=== PATIENT | male | born 1955 | race Caucasian/White ===

== ENCOUNTER → 2018-05-01 | Outpatient (CLI) | payer OTHER ==
[~2018-05-01] MED LIST: ASPI-319 PO; ATOR-54 PO; CALC8.5C PO; CMD/25 PO; HYDR12.55 PO; LOSA1TAB PO; PEDI1CHW95 PO; POTA550T4 PO; TPRSR/100 PO; WARF5TAB90 PO
[2018-05-01 13:55] LABS: BLOOD UREA NITROGEN 18 mg/dl (7-18); CREATININE 1.36 mg/dl (0.60-1.40); GLUCOSE 105 mg/dl (70-99)
[2018-05-01 13:56] LABS: CALCIUM 8.6 mg/dl (8.5-10.1); CARBON DIOXIDE 28 mmol/L (21-32); POTASSIUM 3.2 mmol/L (3.5-5.1); SODIUM 140 mmol/L (136-145)
== END | disposition home or self-care (01) ==
LOC: C.LABBC 09:18
PROVIDERS: ATTEND Internal Medicine Interventional Cardiology
DX: E87.6 Hypokalemia (principal)

== ENCOUNTER → 2018-06-01 | Outpatient (CLI) | payer OTHER | END | disposition home or self-care (01) | LOC: C.LABBC 07:34 | PROVIDERS: ATTEND Internal Medicine Interventional Cardiology | DX: E87.6 Hypokalemia (principal) ==